=== PATIENT | male | born 1960 | race Caucasian/White ===

== ENCOUNTER 2016-09-12 21:49 | Emergency (ER) | payer OTHER ==
[2016-09-12 22:08] VITALS: TEMP 98.7
[2016-09-12] MEDS ORDERED: Acetaminophen-Codeine 300/30 mg Tab PO STA (22:46)
[2016-09-12] MEDS ORDERED: Acetaminophen-Codeine 300/30 mg Tab PO ONE (23:01)
--- NOTE | 2016-09-12 23:46 | C.PDOC ---
History Of Present Illness 56 year old male presents to the ED pain to the right rib cage, that is exacerbated upon inspiration, after falling two days ago. Patient states he used Advil with no relief. Patient denies any fever or head trauma. Time Seen by Provider: 09/12/16 22:29 Chief Complaint (Nursing): Rib Injury History Per: Patient History/Exam Limitations: no limitations Onset/Duration Of Symptoms: Days (2 days ) Current Symptoms Are (Timing): Still Present Recent travel outside of the [place]: No Past Medical History Reviewed: Historical Data, Nursing Documentation, Vital Signs Vital Signs: Last Vital Signs Temp 98.7 F 09/12/16 22:03 Pulse 78 09/13/16 00:00 Resp 18 09/13/16 00:00 BP 144/86 09/13/16 00:00 Pulse Ox 98 09/13/16 00:40 - Medical History PMH: Back Problems Family History: States: Unknown Family Hx - Social History Hx Tobacco Use: Yes (1/2 pack/day) Hx Alcohol Use: No Hx Substance Use: No Review Of Systems Constitutional: Negative for: Fever, Chills, Sweats Cardiovascular: Negative for: Chest Pain, Palpitations Respiratory: Negative for: Cough, Shortness of Breath Gastrointestinal: Negative for: Nausea, Vomiting, Abdominal Pain, Diarrhea Musculoskeletal: Positive for: Other (right rib cage pain ) Neurological: Negative for: Headache Physical Exam - Physical Exam Appears: Non-toxic, No Acute Distress Skin: Warm, Dry Head: Atraumatic Eye(s): bilateral: Normal Inspection, PERRL Oral Mucosa: Moist Neck: Supple Chest: Symmetrical, No Deformity, Tenderness (tenderness to right intercoastal area at the breast line ) Cardiovascular: Rhythm Regular Respiratory: Normal Breath Sounds, No Rales, No Rhonchi, No Wheezing Gastrointestinal/Abdominal: Soft, No Tenderness Back: Normal Inspection Extremity: Normal ROM, No Tenderness Neurological/Psych: Oriented x3 Gait: Steady Additional Physical Exam Comments: No erythema, ecchymosis to the right rib cage. ED Course And Treatment O2 Sat by Pulse Oximetry: 98 Pulse Ox Interpretation: Normal - Other Rad Right Rib XR X-Ray: Interpreted by Me, Viewed By Me Interpretation: No rib fx. no Pneumothorax Progress Note: Pt received tylenol # 3 Reassessment Condition: Improved (Pt understands his dx, had opportunities to ask questions and is aware that he will be contacted in case of XR interpretaton discrepancy. Pt will follow up in clinic , return precautions d/w pt and understood) Disposition - Disposition Referrals: [facility] [Outside] [facility] [Outside] Disposition: HOME/ ROUTINE Disposition Time: 23:43 Condition: STABLE Additional Instructions: Take meds as directed Follow up with PMD Return to ER if worse Prescriptions: Acetaminophen with Codeine [Tylenol with Codeine #3 Tablet] 1 each PO QID #10 tablet Ibuprofen [Motrin] 600 mg PO Q6H #20 tab Instructions: Rib Contusion (ED) - Clinical Impression Clinical Impression: Contusion of rib on right side - Scribe Statement The provider has reviewed the documentation as recorded by the Scribe Britta Cabrera All medical record entries made by the Scribe were at my direction and personally dictated by me. I have reviewed the chart and agree that the record accurately reflects my personal performance of the history, physical exam, medical decision making, and the department course for this patient. I have also personally directed, reviewed, and agree with the discharge instructions and disposition.
[2016-09-13] VITALS: BP 144/86; PULSE 78; RESP 18
[2016-09-13 00:24] VITALS: O2SAT 98
--- NOTE | 2016-09-13 09:12 | RAD ---
PROCEDURE: Radiographs of the Chest and Right Ribs. HISTORY: s/p fall COMPARISON: None available. TECHNIQUE: Frontal radiograph of the chest and multiple oblique radiographs of the right ribs were obtained. FINDINGS: RIGHT RIBS: No fracture or focal lesion visualized. LUNGS: Clear. PLEURA: No pneumothorax or pleural fluid. CARDIOVASCULAR: Normal sized heart. No pulmonary vascular congestion. OTHER FINDINGS: None. IMPRESSION: Unremarkable radiographs of the chest and right ribs. No right rib fracture.
== END 2016-09-13 | disposition home or self-care (01) ==
LOC: C.ER 21:49
DX: S20.211A Contusion of right front wall of thorax, initial encounter (principal); W19.XXXA Unspecified fall, initial encounter; F17.210 Nicotine dependence, cigarettes, uncomplicated

== ENCOUNTER 2016-12-03 01:04 | Emergency (ER) | payer OTHER ==
[2016-12-03 01:19] VITALS: RESP 20
[2016-12-03] MEDS ORDERED: Naproxen 550 mg Tab PO STA (01:49)
[2016-12-03] MEDS ORDERED: Naproxen 550 mg Tab PO ONE (01:58)
--- NOTE | 2016-12-03 02:27 | C.PDOC ---
History Of Present Illness 56 y/o male presents to the ER c/o right shoulder pain s/p mechanical fall that occurred 4 days prior. Patient is right handed and works in construction. Denies change in sensation, weakness, LOC, head injury, or any other complaints. Time Seen by Provider: 12/03/16 01:27 Chief Complaint (Nursing): Upper Extremity Problem/Injury History Per: Patient History/Exam Limitations: no limitations Onset/Duration Of Symptoms: Days (4) Current Symptoms Are (Timing): Still Present Quality: "Pain" Severity: Mild Exacerbating Factor(s): Movement Recent travel outside of the [place]: No Additional History Per: Patient Past Medical History Reviewed: Historical Data, Nursing Documentation, Vital Signs Vital Signs: Last Vital Signs Temp 98 F 12/03/16 03:15 Pulse 82 12/03/16 03:15 Resp 20 12/03/16 03:15 BP 142/83 12/03/16 03:15 Pulse Ox 97 12/03/16 03:15 - Medical History PMH: Back Problems Family History: States: Unknown Family Hx - Social History Hx Tobacco Use: Yes (1/2 pack/day) Hx Alcohol Use: No Hx Substance Use: No Review Of Systems Except As Marked, All Systems Reviewed And Found Negative. Constitutional: Negative for: Other (Head injury) Musculoskeletal: Positive for: Shoulder Pain (Right ) Neurological: Negative for: Weakness, Numbness (Change in sensation), Other (LOC ) Physical Exam - Physical Exam Appears: Well, Non-toxic, No Acute Distress Skin: Warm, Dry Head: Atraumatic, Normacephalic Eye(s): bilateral: Normal Inspection, EOMI Nose: Normal Neck: Normal ROM, Supple Chest: Symmetrical Cardiovascular: Rhythm Regular Respiratory: Normal Breath Sounds Extremity: Normal ROM, Tenderness (Diffuse), Capillary Refill (<2secs), No Deformity, No Swelling Extremity: Bilateral: Normal Color And Temperature Pulses: Left Radial: Normal, Right Radial: Normal Neurological/Psych: Oriented x3, Normal Speech, Normal Cognition, Normal Motor, Normal Sensation, Other (No focal deficit) ED Course And Treatment O2 Sat by Pulse Oximetry: 96 (RA) Pulse Ox Interpretation: Normal - Other Rad Right shoulder XR X-Ray: Interpreted by Me, Viewed By Me Interpretation: no fractures or dislocations. Progress Note: Plans: Anaprox, XRAY right shoulder. Sling applied to right shoulder. Patient is resting comfortably, is no longer having shoulder pain, no bony tenderness, numbness, or weakness. Patient shows no signs of discomfort. Patient was advised to follow up with their orthopedist within 1-2 days for further evaluation. Disposition - Disposition Referrals: Chaparro Chaparro III, MD [Staff Provider] - Disposition: HOME/ ROUTINE Disposition Time: 02:20 Condition: STABLE Additional Instructions: Rest, ice and elevate the area. fOllow up with bone doctor in 1-2 days. Prescriptions: Naproxen [Naprosyn] 1 tab PO BID PRN #20 tab PRN Reason: Pain Instructions: Shoulder Pain (ED) Forms: [employer] (Japanese) - Clinical Impression Clinical Impression: Shoulder contusion - Scribe Statement The provider has reviewed the documentation as recorded by the Scribe Patricia ross All medical record entries made by the Scribe were at my direction and personally dictated by me. I have reviewed the chart and agree that the record accurately reflects my personal performance of the history, physical exam, medical decision making, and the department course for this patient. I have also personally directed, reviewed, and agree with the discharge instructions and disposition.
[2016-12-03 03:17] VITALS: BP 142/83; PULSE 82; TEMP 98
[2016-12-03 04:12] VITALS: O2SAT 96
--- NOTE | 2016-12-03 09:28 | RAD ---
PROCEDURE: Radiographs of the Right Shoulder HISTORY: trauma COMPARISON: Right ribs and chest radiograph performed 09/12/16 FINDINGS: BONES: No acute displaced fracture. The distal clavicle and underlying ribs appear intact. JOINTS: No acute dislocation. Acromioclavicular arthropathy. Glenohumeral joint space narrowing. SOFT TISSUES: Soft tissues appear unremarkable. No evidence of radiopaque foreign body. IMPRESSION: Degenerative changes. No acute displaced fracture or dislocation evident. If symptoms persist or if there is continued clinical concern, x-ray follow-up in 7-10 days should be considered.
== END 2016-12-03 03:15 | disposition home or self-care (01) ==
LOC: C.ER 01:04
DX: S40.011A Contusion of right shoulder, initial encounter (principal); W18.39XA Other fall on same level, initial encounter; Y93.9 Activity, unspecified; Y92.9 Unspecified place or not applicable

== ENCOUNTER 2017-08-02 18:56 | Emergency (ER) | payer OTHER ==
[2017-08-02 19:05] VITALS: BP 147/90; PULSE 94; RESP 18; TEMP 98.2; O2SAT 98
--- NOTE | 2017-08-02 19:34 | C.PDOC ---
History Of Present Illness 57 year old male presents to the ED c/o lower back pain radiating down to his left thigh. Patient reports pain to his right shoulder and right knee as well. Patient denies trauma, fall, injury, weakness, numbness, incontinence, chest pain, SOB, abdominal pain. Time Seen by Provider: 08/02/17 19:20 Chief Complaint (Nursing): Back Pain History Per: Patient History/Exam Limitations: no limitations Onset/Duration Of Symptoms: Days Current Symptoms Are (Timing): Still Present Quality Of Discomfort: "Pain" Previous Symptoms: Back Pain Associated Symptoms: None Recent travel outside of the [place]: No Additional History Per: Patient Past Medical History Reviewed: Historical Data, Nursing Documentation, Vital Signs Vital Signs: Last Vital Signs Temp 98.2 F 08/02/17 19:02 Pulse 94 H 08/02/17 19:02 Resp 18 08/02/17 19:02 BP 147/90 08/02/17 19:02 Pulse Ox 98 08/02/17 22:42 - Medical History PMH: Asthma, Back Problems Surgical History: No Surg Hx Family History: States: Unknown Family Hx - Social History Hx Tobacco Use: Yes (1/2 pack/day) Hx Alcohol Use: No Hx Substance Use: No Review Of Systems Constitutional: Negative for: Fever, Chills Cardiovascular: Negative for: Chest Pain Respiratory: Negative for: Shortness of Breath Gastrointestinal: Negative for: Abdominal Pain Genitourinary: Negative for: Incontinence Musculoskeletal: Positive for: Shoulder Pain, Back Pain Skin: Negative for: Rash Neurological: Negative for: Weakness, Numbness Physical Exam - Physical Exam Appears: Non-toxic, No Acute Distress Skin: Normal Color, Warm, Dry Head: Atraumatic, Normacephalic Eye(s): bilateral: Normal Inspection Nose: No Discharge Oral Mucosa: Moist Neck: Normal ROM, Supple Back: No CVA Tenderness, No Paraspinal Tenderness Extremity: Normal ROM, No Tenderness, No Swelling Neurological/Psych: Oriented x3, Normal Motor, Normal Sensation Gait: Steady ED Course And Treatment O2 Sat by Pulse Oximetry: 98 (ON RA) Pulse Ox Interpretation: Normal Progress Note: On reassessment, patient is resting comfortably, and is in no acute distress. Patient was instructed to follow up with physician/clinic in 1- 2 days for further evaluation. Disposition - Disposition Referrals: [facility] [Outside] Disposition: HOME/ ROUTINE Disposition Time: 19:31 Condition: STABLE Additional Instructions: Take medications as directed Please follow up in clinic Return to ER if worse Prescriptions: Cyclobenzaprine [Cyclobenzaprine HCl] 10 mg PO HS #10 tab Ibuprofen [Motrin] 600 mg PO Q6H #24 tab Instructions: Sciatica (DC) Forms: [employer] (Austrian) - Clinical Impression Clinical Impression: Sciatica, Arthralgia - PA / WAREHOUSE OPERATIONS ASSOCIATE / Resident Statement MD/DO has reviewed & agrees with the documentation as recorded. - Scribe Statement The provider has reviewed the documentation as recorded by the Scribe Carlos Aldrich All medical record entries made by the Scribe were at my direction and personally dictated by me. I have reviewed the chart and agree that the record accurately reflects my personal performance of the history, physical exam, medical decision making, and the department course for this patient. I have also personally directed, reviewed, and agree with the discharge instructions and disposition.
== END 2017-08-02 19:39 | disposition home or self-care (01) ==
LOC: C.ER 18:56
DX: M54.30 Sciatica, unspecified side (principal); M25.50 Pain in unspecified joint; F17.210 Nicotine dependence, cigarettes, uncomplicated

== ENCOUNTER 2018-05-21 12:18 | Emergency (ER) | payer MEDICAID, OTHER ==
[2018-05-21] MEDS ORDERED: Dexamethasone 4 mg/1 ml IVP STA (13:24)
[2018-05-21] MEDS ORDERED: Sodium Chloride 0.9% 1,000 ML IV ONE (13:24)
--- NOTE | 2018-05-21 13:47 | C.PDOC ---
History Of Present Illness 58 years old male presents to ED for complaints of bilateral arm pain that starts from the elbow and radiates to hands. Patient also reports bilateral hand swelling. Patient states symptoms started 4 days ago after he was mopping the floor with Clorox. Patient reports pain worsens with movement of bilateral arms and hands. Denies forceful scrubbing, heavy lifting, back pain, lower extremity pain or swelling, fever, cough, rash, or prior similar symptoms. Time Seen by Provider: 05/21/18 12:38 Chief Complaint (Nursing): Medical Clearance History Per: Patient History/Exam Limitations: no limitations Onset/Duration Of Symptoms: Hrs Current Symptoms Are (Timing): Still Present Recent travel outside of the [place]: No Past Medical History Reviewed: Historical Data, Nursing Documentation, Vital Signs Vital Signs: Last Vital Signs Temp 97.5 F L 05/21/18 12:28 Pulse 112 H 05/21/18 12:42 Resp 18 05/21/18 12:42 BP 145/82 05/21/18 12:42 Pulse Ox 99 05/21/18 12:42 - Medical History PMH: Asthma, Back Problems Surgical History: No Surg Hx Family History: States: Unknown Family Hx - Social History Hx Tobacco Use: Yes (1/2 pack/day) Hx Alcohol Use: No Hx Substance Use: No - Immunization History Hx Tetanus Toxoid Vaccination: No Hx Influenza Vaccination: No Hx Pneumococcal Vaccination: No Review Of Systems Except As Marked, All Systems Reviewed And Found Negative. Constitutional: Negative for: Fever, Chills Respiratory: Negative for: Cough Gastrointestinal: Negative for: Nausea, Vomiting, Diarrhea Musculoskeletal: Positive for: Arm Pain (Bilateral ), Hand Pain (Bilateral ). Negative for: Back Pain Skin: Positive for: Other (Swelling to bilateral hands ). Negative for: Rash Neurological: Negative for: Weakness, Numbness Physical Exam - Physical Exam Appears: Non-toxic, No Acute Distress Skin: Normal Color, Warm, Dry, No Rash Head: Atraumatic, Normacephalic Eye(s): bilateral: Normal Inspection, PERRL, EOMI Oral Mucosa: Moist Neck: Normal ROM, Supple Chest: Symmetrical, No Tenderness Cardiovascular: Rhythm Regular, No Murmur Respiratory: Normal Breath Sounds, No Rales, No Rhonchi, No Wheezing Gastrointestinal/Abdominal: Soft, No Tenderness Back: Normal Inspection, No CVA Tenderness Extremity: Normal ROM, Swelling (To bilateral hands along MCP and PIP joints ) Extremity: Bilateral: Normal ROM Pulses: Left Radial: Normal, Right Radial: Normal Neurological/Psych: Oriented x3, Normal Speech, Normal Motor, Normal Sensation, Normal Reflexes, Other (No focal deficits ) Gait: Steady ED Course And Treatment - Laboratory Results Result Diagrams: 05/21/18 14:01 05/21/18 14:01 O2 Sat by Pulse Oximetry: 99 (RA) Pulse Ox Interpretation: Normal Medical Decision Making Medical Decision Making: Plan: * IV Fluids * Decadron * Toradol * Blood work Disposition - Disposition Referrals: [facility] [Outside] Disposition: HOME/ ROUTINE Disposition Time: 14:49 Condition: GOOD Additional Instructions: Follow up within 1-2 days. Return if worsened. Prescriptions: Naproxen [Naprosyn] 500 mg PO BID #20 tab Instructions: Muscle Strain Forms: [employer] (Mozambican) - Clinical Impression Clinical Impression: Muscle strain - PA / AUTOMOTIVE REPAIR TECHNICIAN / Resident Statement MD/DO has reviewed & agrees with the documentation as recorded. - Scribe Statement The provider has reviewed the documentation as recorded by the Melyibkarlee Hayes All medical record entries made by the Melyibkarlee were at my direction and personally dictated by me. I have reviewed the chart and agree that the record accurately reflects my personal performance of the history, physical exam, medical decision making, and the department course for this patient. I have also personally directed, reviewed, and agree with the discharge instructions and disposition.
[2018-05-21] MEDS ORDERED: Dexamethasone 4 mg/1 ml ONE (14:01)
[2018-05-21 14:04] LABS: BASO % 0.7 % (0.0-2.0); EOS # 0.2 K/uL (0.0-0.7); EOS % 3.6 % (0.0-4.0); HEMOGLOBIN 12.6 g/dL (12.0-18.0); LYMPH % 18.4 % (20.0-40.0); MEAN CELL VOLUME 84.7 fL (80.0-94.0); MEAN CORPUSCULAR HEMOGLOBIN 29.2 pg (27.0-31.0); MEAN CORPUSCULAR HGB CONC 34.5 g/dL (33.0-37.0); MEAN PLATELET VOLUME 8.7 fL (7.2-11.7); MONO # 0.4 K/uL (0.0-0.8); MONO % 6.7 % (0.0-10.0); NEUT % 70.6 % (50.0-75.0); NRBC % 0.1 % (0.0-2.0); RBC 4.3 Mil/uL (4.40-5.90); RED CELL DISTRIBUTION WIDTH 12.6 % (11.5-14.5); WHITE BLOOD COUNT 5.7 K/uL (4.8-10.8)
[2018-05-21 14:05] VITALS: RESP 17; TEMP 98.1
[2018-05-21 14:21] LABS: ALB/GLOB RATIO 1.3 (1.0-2.1); ALBUMIN 3.9 g/dL (3.5-5.0); ALT/SGPT 37 U/L (21-72); AST/SGOT 19 U/L (17-59); BLOOD UREA NITROGEN 15 mg/dL (9-20); CALCIUM 9.2 mg/dl (8.6-10.4); GFR NON-AFRICAN AMERICAN > 60
[2018-05-21 14:54] VITALS: O2SAT 99
[2018-05-21 14:56] VITALS: BP 130/59; PULSE 77
== END 2018-05-21 14:53 | disposition home or self-care (01) ==
LOC: C.ER 12:18
DX: S46.919A Strain of unspecified muscle, fascia and tendon at shoulder and upper arm level, unspecified arm, initial encounter (principal); Y93.E5 Activity, floor mopping and cleaning; F17.210 Nicotine dependence, cigarettes, uncomplicated
CPT/HCPCS: 80053; 82550; 85025; 96374; 96375; 99283; J1100; J1885; J7030